=== PATIENT | male | born 1950 | race Hispanic/Latino ===

== ENCOUNTER 2021-01-13 17:44 | Emergency (ER) | payer MEDICARE ==
--- NOTE | 2021-01-13 17:49 | Emergency Department Report ---
HPI - General Time Seen by Provider: 01/13/21 17:45 - HPI HPI: This is a 70-year-old male who presented to the emergency department via EMS from a local [facility] after he was found unresponsive with concerns for respiratory distress. The initial call that we got was for a patient who is unresponsive and receiving bag valve mask ventilation. At the time of patient's arrival to the emergency department, he is awake, alert, oriented. The patient received a 2 mg dose of Narcan given in 1 mg increments. The second half of the dose provided an immediate response. Patient denies using any illicit drugs and says he is unsure what occurred prior to presentation. However, EMS stated that they heard something about the patient using "ice", which is a sling term for methamphetamines. The patient admits to a history of pulmonary hypertension. He does complain of some shortness of breath but says that is chronic. It does not appear that this patient has been to this emergency department previously. Patient had an Accu-Chek in route that was 190. ED Review of Systems ROS: Stated complaint: DRUG USE Other details as noted in HPI Comment: All other systems reviewed and negative Constitutional: denies: chills, fever Eyes: denies: eye pain, vision change ENT: denies: ear pain, throat pain Respiratory: shortness of breath (Chronic). denies: cough Cardiovascular: syncope (Versus unresponsive episode). denies: chest pain Gastrointestinal: denies: abdominal pain, vomiting Musculoskeletal: denies: back pain, arthralgia Skin: denies: rash, lesions Neurological: denies: headache, numbness, paresthesias Physical Exam - Physical Exam Physical Exam: GENERAL: The patient is well-developed well-nourished. HENT: Normocephalic. Atraumatic. Patient has moist mucous membranes. EYES: Extraocular motions are intact. NECK: Supple. Trachea is midline. CHEST/LUNGS: Clear to auscultation. There is no respiratory distress noted. HEART/CARDIOVASCULAR: Regular. There is mild tachycardia. There is no murmur. ABDOMEN: Abdomen is soft, nontender. Patient has normal bowel sounds. There is no abdominal distention. SKIN: Skin is warm and dry. NEURO: The patient is awake, alert, and oriented. The patient is cooperative. The patient has no focal neurologic deficits. Normal speech. Cranial nerves II through XII grossly intact. MUSCULOSKELETAL: There is no tenderness or deformity. There is no limitation range of motion. ED Course - Reevaluation(s) Reevaluation #1: 01/13/21 17:57 Initially the EMS call was for an unresponsive patient who is receiving [id number] ventilation. I was waiting outside of room #1 thinking that the patient would require possible endotracheal intubation. However, the patient arrived awake, alert, oriented, and asking for immediate discharge. The patient had responded to Narcan given. He had an Accu-Chek of about 190. I went and evaluated the patient. He is oriented, AAO x3. While he is unable to tell me as to why he may have gone unresponsive, he is able to display that he has a normal decision-making capacity. I believe that the patient is not forthcoming about possible illicit drug use. However, at this time, the patient appears clinically sober. I explained to him that I recommend an evaluation of this unresponsive episode including labs, EKG, multiple reevaluations, and possible imaging. The patient understands that leaving at this time, AGAINST MEDICAL ADVICE, could lead to recurrent unresponsive or syncopal episodes, stroke, arrhythmia, heart attack, coma, disability, or even . Despite understanding the risks, the patient has still decided to leave AGAINST MEDICAL ADVICE. He understands that he can return to the emergency department at any time if he changes his mind about further evaluation, or with any acute distress. ED Medical Decision Making - Medical Decision Making As previously stated, this patient initially was brought into the emergency department after he was found unresponsive and what appeared to be respiratory distress. He was receiving bag valve ventilation and was given Narcan. After the patient received Narcan he arrived to our emergency department awake, alert, oriented, and requesting discharge immediately. The patient denies any illicit drug use but appeared to have an immediate response to the Narcan. However, at the time of my examination, the patient is clinically sober. He appears to have a normal decision-making capacity and therefore the patient is allowed to sign out AMA. We discussed the risks of leaving AMA, but despite understanding the risks the patient signed out AMA. Vital signs are mostly unremarkable including being afebrile other than some mild tachycardia. Patient understands that he can return to this emergency department at any time if he changes his mind about further evaluation, or with any acute distress. Patient was seen ambulatory leaving the emergency department upon leaving AMA. Critical Care Time: No Critical care attestation.: If time is entered above; I have spent that time in minutes in the direct care of this critically ill patient, excluding procedure time. ED Disposition Clinical Impression: Unresponsive episode Disposition: LEFT AGAINST MEDICAL ADVICE Is pt being admited?: No Forms: AMA Form Time of Disposition: 17:49
[2021-01-13 18:08] VITALS: BP 100/60
== END 2021-01-13 19:00 | disposition left against medical advice (07) ==
LOC: ED 17:44
DX: R40.4 Transient alteration of awareness (principal)
CPT/HCPCS: 99283